=== PATIENT | female | born 1945 | race Caucasian/White ===

== ENCOUNTER 2018-08-06 20:49 | Emergency (ER) | payer OTHER, MEDICARE ==
[2018-08-06 20:58] VITALS: BP 154/81; PULSE 90; TEMP 98.2; BMI 19.3
--- NOTE | 2018-08-06 21:05 | PDOC ---
History of Present Illness - General History Source: Patient Exam Limitations: No Limitations - History of Present Illness Initial Comments: 08/06/18 21:18 The patient is a 73 year old female, with a significant PMH of chronic back pain who presents to the emergency department with right rivera laceration since 3PM earlier today. Patient states she tripped and slid her right rivera against the corner of a low, wooden table but was able to sustain the fall with her hands. Patient denies any other injuries or head trauma. Patient has been able to ambulate after the fall. Last tetanus shot was 2 years ago. Patient is not on any blood thinners. The patient denies chest pain, shortness of breath, headache and dizziness. Denies fever, chills, nausea, vomit, diarrhea and constipation. Denies dysuria, frequency, urgency and hematuria. Allergies: NKA Past surgical history: None reported. Social history: No reported alcohol, drug or cigarette use. <Stephanie Mast - Last Filed: 08/06/18 21:21> <Yesica Urban - Last Filed: 08/07/18 06:22> - General Chief Complaint: Laceration Stated Complaint: RT RIVERA LAC Time Seen by Provider: 08/06/18 20:57 Past History <Stephanie Mast - Last Filed: 08/06/18 21:21> - Past Medical History COPD: No Psychiatric Problems: Yes Other medical history: ALLERGIES - Surgical History Appendectomy: Yes - Immunization History TDAP Vaccination: Yes (05/06/16) Immunization Up to Date: Yes - Suicide/Smoking/Psychosocial Hx Smoking History: Never smoked Hx Alcohol Use: No Drug/Substance Use Hx: No Substance Use Type: None <Yesica Urban - Last Filed: 08/07/18 06:22> - Past Medical History Allergies/Adverse Reactions: Allergies Allergy/AdvReac Type Severity Reaction Status Date / Time bupropion HCl Allergy Intermediate Rash Verified 05/20/16 09:54 [From Wellbutrin] Penicillins Allergy Mild Rash Verified 05/20/16 09:54 Home Medications: Ambulatory Orders Alprazolam [Xanax] 1 mg PO HS 05/06/16 Cholecalciferol (Vitamin D3) [Vitamin D3] 5,000 unit PO DAILY 05/06/16 Escitalopram Oxalate [Lexapro -] 15 mg PO DAILY 05/06/16 Eszopiclone [Lunesta -] 3 mg PO HS 05/06/16 Fluticasone Prop 0.05% Nasal [Flonase -] 2 spray NS HS 05/06/16 Ibuprofen [Advil -] 400 mg PO BID PRN MDD 800 MG 05/06/16 Nortriptyline HCl [Pamelor] 80 mg PO HS 05/06/16 clonazePAM [Klonopin -] 1 mg PO HS 05/06/16 Cefuroxime Axetil [Ceftin -] 250 mg PO BID #8 tablet 08/06/18 Loratadine 10 mg PO DAILY 08/06/18 Montelukast Sodium [Singulair] 10 mg PO DAILY 08/06/18 Review of Systems - Review of Systems Able to Perform ROS?: Yes Comments:: 08/06/18 21:18 ADULT ROS GENERAL/CONSTITUTIONAL: No fever or chills. No weakness. HEAD, EYES, EARS, NOSE AND THROAT: No change in vision. No ear pain or discharge. No sore throat. CARDIOVASCULAR: No chest pain or shortness of breath. RESPIRATORY: No cough, wheezing, or hemoptysis. GASTROINTESTINAL: No nausea, vomiting, diarrhea or constipation. GENITOURINARY: No dysuria, frequency, or change in urination. MUSCULOSKELETAL: No joint or muscle swelling or pain. No neck or back pain. SKIN: (+) Laceration to the right lower extremity. NEUROLOGIC: No headache, vertigo, loss of consciousness, or change in strength/ sensation. ENDOCRINE: No increased thirst. No abnormal weight change. HEMATOLOGIC/LYMPHATIC: No anemia, easy bleeding, or history of blood clots. ALLERGIC/IMMUNOLOGIC: No hives or skin allergy. <Stephanie Mast - Last Filed: 08/06/18 21:21> *Physical Exam - Vital Signs Last Vital Signs Temp Pulse Resp BP Pulse Ox 98.2 F 90 16 154/81 99 08/06/18 20:54 08/06/18 20:54 08/06/18 20:54 08/06/18 20:54 08/06/18 20:54 - Physical Exam Comments: 08/06/18 21:18 ADULT EXAM GENERAL: Awake, alert, and fully oriented, in no acute distress HEAD: No signs of trauma EYES: PERRLA, EOMI, sclera anicteric, conjunctiva clear ENT: Auricles normal inspection, hearing grossly normal, nares patent, oropharynx clear without exudates. Moist mucosa NECK: Normal ROM, supple, no lymphadenopathy, JVD, or masses LUNGS: Breath sounds equal, clear to auscultation bilaterally. No wheezes, and no crackles HEART: Regular rate and rhythm, normal S1 and S2, no murmurs, rubs or gallops ABDOMEN: Soft, nontender, normoactive bowel sounds. No guarding, no rebound. No masses EXTREMITIES: Normal range of motion. (+) 15cm linear wound to the anterior tibial surface with superficial skin tear to the proximal and distal area of the wound. (+) Full thickness laceration of the middle portion of the wound. No underlying deformity, tenderness or edema. Remainder of the right lower extremity is normal. NEUROLOGICAL: Cranial nerves II through XII grossly intact. Normal speech, normal gait SKIN: Warm, Dry, normal turgor, no rashes noted. <Stephanie Mast - Last Filed: 08/06/18 21:21> - Vital Signs Last Vital Signs Temp Pulse Resp BP Pulse Ox 98.2 F 90 16 154/81 99 08/06/18 20:54 08/06/18 20:54 08/06/18 20:54 08/06/18 20:54 08/06/18 20:54 <Yesica Urban - Last Filed: 08/07/18 06:22> Procedures - Laceration/Wound Repair Right Lower Anterior Leg Wound Length: 12.6 to 20 cm Wound Explored: clean Wound's Depth, Shape: linear Irrigated w/ Saline: Yes Betadine Prep: No (chlorhexidine/ethanol) Anesthesia: 1% Lidocaine Amount of Anesthetic (ccs): 3 Wound Debrided: minimal Wound Repaired With: Sutures Suture Size/Type: 4:0 Number of Sutures: 7 Layer Closure: No Sterile Dressing Applied: Yes Splint Applied: No Sling Applied: No Progress: Area of vertical linear laceration of the right anterior tibial surface prepped using chlorhexidine/ethanol solution and sterilely draped. 3 mL of 1% lidocaine infiltrated into soft tissue for local anesthesia in the area that was to be sutured. Wound was irrigated using 40 mL of sterile normal saline. Small areas of devitalized tissue was sharply debrided at the proximal and distal areas of the wound. Central portion of the wound was deeper and required suturing. The wound edges were closely approximated and wound closed using 7 interrupted sutures of 4-0 nylon. Bacitracin ointment was placed on the entire length of the wound and Telfa pad covered with sterile 4 x 4 gauze followed by gauze roll applied. Patient tolerated procedure well <Yesica Urban - Last Filed: 08/07/18 06:22> Progress Note - Progress Note Progress Note: Documentation has been prepared under my direction and personally reviewed by me in its entirety. I attest that this documented accurately reflects all work, treatment, procedures and medical decision making performed by me. <Yesica Urban - Last Filed: 08/07/18 06:22> Medical Decision Making - Medical Decision Making As noted above, this 73-year-old woman sustained linear, vertical jew of the right anterior tibial surface when she scraped the area on the sharp corner of the wooden coffee table in her home. This occurred approximately 6 hours prior to presentation; she presented now when she showed the wound which was still bleeding, to her who is a retired pathologist. He suggested that she have the wound evaluated for possible suturing. Patient is up-to-date on her tetanus prophylaxis and has no history of poor wound healing or resistant organism colonization/infection. Physical exam and closure of the wound as noted above. Because of the length of time that the wound was opened and possibility of poor wound healing in the area of the lower leg, the patient will be started on Ceftin (patient has a history of penicillin ALLERGY from childhood but has taken Ceftin in the past with no adverse effects). Ceftin 250 mg twice a day for 4 days will be prescribed. Right leg should be elevated as much as possible over the next 2 days and wound Covered and dry during this time. After that, area can be left open to the air as much as possible except for the limited areas of skin tear/abrasion which should be covered with bacitracin and sterile dressing. Sutures should be removed in 10 days. She should return or see her doctor if area looks red/swollen or is painful/tender. <Yesica Urban - Last Filed: 08/07/18 06:22> *DC/Admit/Observation/Transfer <Stephanie Mast - Last Filed: 08/06/18 21:21> <Yesica Urban - Last Filed: 08/07/18 06:22> Diagnosis at time of Disposition: Laceration of lower leg Qualifiers: Encounter type: initial encounter Laterality: right Qualified Code(s): S81.811A - Laceration without foreign body, right lower leg, initial encounter - Discharge Dispostion Disposition: HOME Condition at time of disposition: Stable - Prescriptions Prescriptions: Cefuroxime Axetil [Ceftin -] 250 mg PO BID #8 tablet - Patient Instructions Printed Discharge Instructions: How to Care for a Laceration After Repair Additional Instructions: keep right leg elevated as much as possible for the next [address] dressing in [address], as dry as possible, for the next 2 days after 2 days, protective dressing as needed(especially over skin tear areas) otherwise, have wound open to air as much as possible/ Bacitracin to wound daily Take dose of Ceftin tonight, as discussed, then ceftin 250mg twice a day for 4 days Return or see your doctor if area is red/swollen/painful Have sutures removed on August 16
== END 2018-08-06 22:34 | disposition home or self-care (01) ==
LOC: FER 20:49
PROC: 0HQKXZZ Repair Right Lower Leg Skin, External Approach (ICD-10-PCS; principal; 2018-08-06)
DX: S81.811A Laceration without foreign body, right lower leg, initial encounter (principal); W22.03XA Walked into furniture, initial encounter; Y93.89 Activity, other specified; Y92.008 Other place in unspecified non-institutional (private) residence as the place of occurrence of the external cause; M54.9 Dorsalgia, unspecified; G89.29 Other chronic pain
CPT/HCPCS: 99282-25

== ENCOUNTER 2018-08-17 15:37 | Emergency (ER) | payer OTHER, MEDICARE ==
[2018-08-17 16:02] VITALS: BP 134/60; PULSE 83; TEMP 97.9; BMI 19.3
--- NOTE | 2018-08-17 16:06 | PDOC ---
Suture Removal/Wound Check HPI - History of Present Illness Chief Complaint: Suture/Staple Removal(Here) Stated Complaint: suture removal Time Seen by Provider: 08/17/18 16:05 History Source: Yes: Patient Exam Limitations: Yes: No Limitations Treated at: [facility] Date of Last ED visit: 08/06/18 - Previous ED Treatment Type of procedure performed on last visit: Yes: Laceration Repair Tetanus Immunization: Yes: Up to Date Antibiotics Prescribed: Yes - Onset of Previous Treatment Comment:: 08/17/18 16:13 Pt presents to the ED for removal of sutures placed in the leg on 08/06. wound has been healing well. Past History - Past Medical History Allergies/Adverse Reactions: Allergies Allergy/AdvReac Type Severity Reaction Status Date / Time bupropion HCl Allergy Intermediate Rash Verified 08/17/18 16:02 [From Wellbutrin] Penicillins Allergy Mild Rash Verified 08/17/18 16:02 Home Medications: Ambulatory Orders Alprazolam [Xanax] 1 mg PO HS 05/06/16 Cholecalciferol (Vitamin D3) [Vitamin D3] 5,000 unit PO DAILY 05/06/16 Escitalopram Oxalate [Lexapro -] 15 mg PO DAILY 05/06/16 Eszopiclone [Lunesta -] 3 mg PO HS 05/06/16 Fluticasone Prop 0.05% Nasal [Flonase -] 2 spray NS HS 05/06/16 Ibuprofen [Advil -] 400 mg PO BID PRN MDD 800 MG 05/06/16 Nortriptyline HCl [Pamelor] 80 mg PO HS 05/06/16 clonazePAM [Klonopin -] 1 mg PO HS 05/06/16 Cefuroxime Axetil [Ceftin -] 250 mg PO BID #8 tablet 08/06/18 Loratadine 10 mg PO DAILY 08/06/18 Montelukast Sodium [Singulair] 10 mg PO DAILY 08/06/18 COPD: No Psychiatric Problems: Yes - Surgical History Appendectomy: Yes - Immunization History TDAP Vaccination: Yes (05/06/16) Immunization Up to Date: Yes - Suicide/Smoking/Psychosocial Hx Smoking History: Never smoked Hx Alcohol Use: No Drug/Substance Use Hx: No Substance Use Type: None Suture Removal/Wound Check PE - Physical Exam Comments: 08/17/18 16:16 Large, mostly healed laceration to the R leg, with [address] Small area that was left open at the top of the laceration, with granulation tissue. No erythema or discharge from the wound. Wound is healed well. *Physical Exam - Vital Signs Last Vital Signs Temp Pulse Resp BP Pulse Ox 97.9 F 83 15 134/60 100 08/17/18 16:00 08/17/18 16:00 08/17/18 16:00 08/17/18 16:00 08/17/18 16:00 Moderate Sedation - Procedure Monitoring Vital Signs: Procedure Monitoring Vital Signs Temperature 97.9 F 08/17/18 16:00 Pulse Rate 83 08/17/18 16:00 Respiratory Rate 15 08/17/18 16:00 Blood Pressure 134/60 08/17/18 16:00 O2 Sat by Pulse Oximetry (%) 100 08/17/18 16:00 Medical Decision Making - Medical Decision Making 08/17/18 16:17 Pt presents to the ED for suture removal. Wound is healing well. Sutures removed in the ED. Will discharge home. *DC/Admit/Observation/Transfer Diagnosis at time of Disposition: Visit for suture removal Laceration of lower leg Qualifiers: Encounter type: subsequent encounter Laterality: right Qualified Code(s): S81.811D - Laceration without foreign body, right lower leg, subsequent encounter - Discharge Dispostion Disposition: HOME Condition at time of disposition: Good Decision to Admit order: No - Referrals - Patient Instructions Printed Discharge Instructions: DI for Suture Removal - Post Discharge Activity
== END 2018-08-17 16:21 | disposition home or self-care (01) ==
LOC: FER 15:37
DX: Z48.02 Encounter for removal of sutures (principal)
CPT/HCPCS: 99281-25